=== PATIENT | female | born 1980 | race Caucasian/White ===

== ENCOUNTER 2020-05-06 00:54 | Emergency (ER) | payer MEDICAID ==
[~2020-05-06] VITALS: Ht 147.3 cm; Wt 82.0 kg
[2020-05-06] MEDS ORDERED: TETANUS, DIPHTHERIA, PERTUSSIS VAC/PF 0.5ML (>7YR OLD) IM ONE (01:45)
[2020-05-06] MEDS ORDERED: IBUPROFEN 600MG TABLET PO ONE (01:45)
[2020-05-06] MEDS ORDERED: BACITRACIN ZINC OINT UDPKT TOP ONE (01:45)
[2020-05-06] MEDS ORDERED: LIDOCAINE 1%/EPI 1:100,000 10 ML VIAL IJ ONE (01:45)
[2020-05-06] MEDS ORDERED: LIDOCAINE HCL/EPINEPHRINE 1%-EPI 1:100,000 20 ML VIAL INFIL NR (02:15)
[2020-05-06 03:35] VITALS: BP 130/82
== END 2020-05-06 03:43 | disposition home or self-care (01) ==
LOC: ER 00:59
DX: S81.812A Laceration without foreign body, left lower leg, initial encounter (principal); Z98.890 Other specified postprocedural states; W26.0XXA Contact with knife, initial encounter; Y93.G3 Activity, cooking and baking; Y92.010 Kitchen of single-family (private) house as the place of occurrence of the external cause
CPT/HCPCS: 12002; 90471; 90715; 99283; Z7610; J3490

== ENCOUNTER 2020-05-08 13:31 | Emergency (ER) | payer MEDICAID ==
[~2020-05-08] VITALS: Ht 152.4 cm; Wt 82.0 kg
[2020-05-08 13:34] VITALS: BP 130/61
[2020-05-08] MEDS ORDERED: BACITRACIN ZINC OINT UDPKT TOP ONE (14:00)
== END 2020-05-08 14:15 | disposition home or self-care (01) ==
LOC: ER 13:31
DX: Z48.00 Encounter for change or removal of nonsurgical wound dressing (principal)
CPT/HCPCS: 99282

== ENCOUNTER 2020-05-15 13:17 | Emergency (ER) | payer MEDICAID ==
[~2020-05-15] VITALS: Ht 152.4 cm; Wt 81.0 kg
[2020-05-15 13:19] VITALS: BP 117/74
== END 2020-05-15 15:08 | disposition home or self-care (01) ==
LOC: ER 13:33
DX: Z48.00 Encounter for change or removal of nonsurgical wound dressing (principal)
CPT/HCPCS: 99282

== ENCOUNTER 2020-05-21 14:36 | Emergency (ER) | payer MEDICAID ==
[~2020-05-21] VITALS: Ht 149.9 cm; Wt 82.0 kg
[2020-05-21 14:46] VITALS: BP 124/89
== END 2020-05-21 15:35 | disposition home or self-care (01) ==
LOC: ER 14:36
DX: Z48.02 Encounter for removal of sutures (principal)
CPT/HCPCS: 99281; 99283

== ENCOUNTER 2020-10-02 15:38 | Emergency (ER) | payer MEDICAID ==
[~2020-10-02] VITALS: Ht 144.8 cm; Wt 75.0 kg
[2020-10-02] MEDS ORDERED: KETOROLAC 60MG/2ML VIAL IM ONE (17:00)
[2020-10-02 19:49] VITALS: BP 130/70
== END 2020-10-02 19:50 | disposition home or self-care (01) ==
LOC: ER 15:38
DX: F41.9 Anxiety disorder, unspecified (principal); R51.9 Headache, unspecified; Z98.890 Other specified postprocedural states
CPT/HCPCS: 99281; Z7610

== ENCOUNTER 2023-03-26 19:21 | Emergency (ER) | payer MEDICAID ==
[~2023-03-26] VITALS: Ht 149.9 cm; Wt 89.2 kg
[2023-03-26 20:02] VITALS: TEMP 98.2; O2SAT 99
[2023-03-26 20:29] LABS: CLARITY URINE CLEAR (CLEAR); COLOR URINE YELLOW (YELLOW); GLUCOSE URINE NEGATIVE (NEGATIVE); KETONES URINE NEGATIVE (NEGATIVE); LEUKOCYTE ESTERASE URINE NEGATIVE (NEGATIVE); NITRITE URINE NEGATIVE (NEGATIVE); OCCULT BLOOD URINE NEGATIVE (NEGATIVE); PROTEIN URINE NEGATIVE (NEGATIVE); SPECIFIC GRAVITY URINE 1.023 (1.005-1.030)
[2023-03-26 21:08] LABS: BASOPHILS % 0.5 % (0.0-2.0); EOSINOPHILS % 2.8 % (0.0-5.0); HEMATOCRIT. 35.4 % (36.0-48.0); HEMOGLOBIN. 12.3 g/dL (12.0-16.0); MEAN CORPUSCULAR HGB CONC 34.6 g/dL (31.0-37.0); MEAN CORPUSCULAR VOLUME 86.5 fL (81.0-99.0); MEAN PLATELET VOLUME 8.3 fl (7.4-10.4); MONOCYTES % 7.3 % (2.0-8.0); NEUTROPHILS % 45.4 % (40.0-76.0); PLATELET 281 x1000/uL (130-400); RED BLOOD CELL COUNT 4.09 mill/uL (4.2-5.4); RED CELL DISTRIBUTION WIDTH 14.4 % (11.6-14.6); WHITE BLOOD COUNT 6.7 x1000/uL (4.5-11.0)
[2023-03-26 21:23] LABS: CHLORIDE 110 mEq/L (98-107); INDEX HEMOLYSI 1 (1-3); INDEX ICTERIC 1 (1-4); INDEX LIPEMIC 1 (1-3); POTASSIUM 3.8 mEq/L (3.5-5.1); SODIUM 139 mEq/L (136-145)
[2023-03-26 21:35] LABS: ALANINE AMINOTRANSFERASE 27 IU/L (13-61); ALBUMIN 3.9 g/dL (3.4-5.0); ASPARTATE AMINOTRANSFERASE 17 IU/L (15-37); BILIRUBIN TOTAL 0.5 mg/dL (0.1-1.0); CALCIUM 8.8 mg/dL (8.5-10.1); CARBON DIOXIDE 23 mEq/L (21-32); CREATININE 0.6 mg/dL (0.6-1.3); GLUCOSE 107 mg/dL (70-105); PROTEIN TOTAL 7.4 g/dL (6.0-8.3); UREA NITROGEN BLOOD 21 mg/dL (7-21)
[2023-03-26 23:30] LABS: HCG SCREEN NEGATIVE
[2023-03-27] MEDS ORDERED: TOPUD PO (02:40)
[2023-03-27] MEDS ORDERED: IBUP-2028 MT (02:40)
[2023-03-27 02:58] VITALS: BP 123/80; PULSE 80; RESP 16
== END 2023-03-27 02:58 | disposition home or self-care (01) ==
LOC: ER 19:21
DX: R10.30 Lower abdominal pain, unspecified (principal); Z98.890 Other specified postprocedural states
CPT/HCPCS: 36415; 74176; 80053; 81003; 84703; 85025; 99284

== ENCOUNTER 2024-09-15 20:05 | Emergency (ER) | payer MEDICAID ==
[~2024-09-15] VITALS: Ht 165.1 cm; Wt 85.0 kg
[~2024-09-15 20:05] MED LIST: IBUP-2028 MT; TOPUD PO
[2024-09-15 20:07] VITALS: O2SAT 99
[2024-09-15] MEDS: LIDOCAINE 5% PATCH TOP SCH (21:26)
[2024-09-15] MEDS: KETOROLAC 15MG/ML VIAL IM ONE (21:26)
[2024-09-15] MEDS ORDERED: LIDO700A15 TP (23:04)
[2024-09-15] MEDS ORDERED: NAPR-1176 MT (23:04)
[2024-09-15 23:32] VITALS: BP 155/100; PULSE 90; RESP 18; TEMP 36.7; O2SAT 99
== END 2024-09-15 23:36 | disposition home or self-care (01) ==
LOC: ER 20:05
DX: M54.50 Low back pain, unspecified (principal)
CPT/HCPCS: 99283; 81025; 96372; J1885